=== PATIENT | male | born 1975 ===

== ENCOUNTER 2023-12-27 05:29 | Day surgery (SDC) | payer OTHER ==
[~2023-12-27] VITALS: Ht 185.4 cm; Wt 86.2 kg
[~2023-12-27 05:29] MED LIST: COZAAR50 MG
[2023-12-27] MEDS ORDERED: BUPIVACAINE HCL/PF 0.5% 30ML ML IJ ONE (06:45)
[2023-12-27] MEDS ORDERED: CEFTRIAXONE SODIUM 2,000 MG VIAL IV ONE (06:45)
[2023-12-27] MEDS ORDERED: METRONIDAZOLE/SODIUM CHLORIDE 500 MG/100 ML PIGGYBACK IV ONE ×2 (06:45→07:04)
[2023-12-27] MEDS ORDERED: ENOXAPARIN SODIUM 40 MG/0.4 ML SYRINGE SUBCUTANEO ONE ×2 (06:45→07:03)
[2023-12-27] MEDS ORDERED: BUPIVACAINE HCL/PF 0.5% 30ML ML ONE (07:04)
[2023-12-27] MEDS ORDERED: CEFTRIAXONE SODIUM 2,000 MG VIAL ONE (07:04)
[2023-12-27] MEDS ORDERED: PERCOCET 5-3251 EACH PO (10:27)
[2023-12-27] MEDS ORDERED: COLACE100 MG PO (10:29)
[2023-12-27] MEDS ORDERED: CELEBREX200MG PO (10:29)
[2023-12-27] MEDS ORDERED: NEURONTIN300 MG PO (10:29)
== END 2023-12-27 12:00 | disposition home or self-care (01) ==
LOC: CIR.AMB 05:29
PROVIDERS: ATTEND Surgery
DX: K42.0 Umbilical hernia with obstruction, without gangrene (principal)
CPT/HCPCS: 49594; C1781